=== PATIENT | male | born 1995 | race Asian ===

== ENCOUNTER → 2019-10-19 16:02 | Outpatient (POV) | payer BC, SELFPAY | PROVIDERS: PCP Dermatology; Visit Provider Dermatology | DX: Z00.00 Encounter for general adult medical examination without abnormal findings (principal) ==

== ENCOUNTER 2020-02-02 17:19 | Emergency (ER) | payer BC, SELFPAY ==
[2020-02-02 17:37] VITALS: BP 129/67; PULSE 89; RESP 21; TEMP 38.5; O2SAT 100; BMI 23.0
[2020-02-02 17:42] VITALS: BP 129/67; PULSE 89; RESP 21; TEMP 38.5; O2SAT 100; BMI 23.0
--- NOTE | 2020-02-02 17:56 | HMH.EDUTC ---
[facility] [place] Disposition Clinical Impression: URI (upper respiratory infection) Qualifiers: URI type: unspecified URI Qualified Code(s): J06.9 - Acute upper respiratory infection, unspecified Disposition: Home, Self-Care Condition on Discharge: Good Instructions: Sore Throat, Sinusitis, DI for Sinusitis, DI for Cough -- Adult, Preventing the Spread of Coronavirus Discharge Instructions Additional Instructions: No work until COVID19 test back and negative results *Take medication as prescribed *Monitor Temp, Over the counter Motrin or Tylenol as directed/as needed Tylenol every 4 hours and Motrin every 6 hours (as long as your family doctor has told you that you can take it) for fever or pain. and straight to ER if unable to lower temp less than 101.0 after medication given *Warm salt water gargles may help to soothe the throat *Throat Lozenges *Warm fluids like tea with honey may help to soothe the throat *Sleep elevated *Humidifier/Vaporizer Your throat swab was sent for culture. Those results are typically sent to your primary care. Be sure to follow up in 2-3 days with your family doctor/primary care physician if no improvement so they can review those result and treat if necessary. If you don?t have a primary care doctor, I recommend you get one but in the mean time, you will have to return to a walk in clinic Follow up IMMEDIATELY for new or worsening symptoms or no Noticeable improvement over the next 48-72 hours. 911 for difficulty breathing or swallowing You was given handout with further instructions on how to quarantine at home make sure you read and follow these instructions Call back to the [facility] on Friday to see if your COVID19 test results are back and result of the test Prescriptions: Azithromycin [Z-Isidro 250mg Tab] 250 mg PO DIRECTED #6 tab Prescription Printed Referrals: Provider,Referral, MD [Primary Care Provider] - As needed Forms: Work/School Release Time of Disposition: 18:28 Medical Decision Making - Lamberto Inquiry Pt receiving controlled substance: No Lamberto was queried for this patient: No Vital Signs: 02/02/20 17:37 02/02/20 17:42 02/02/20 18:24 Temperature 101.3 F H 101.3 F H 100.7 F H Temperature Source Oral Oral Oral Pulse Rate [Right] 89 89 Respiratory Rate 21 21 Blood Pressure [Right Arm] 129/67 129/67 Blood Pressure Mean [Right Arm] 87 87 Blood Pressure Source [Right Arm] Automatic Cuff Blood Pressure Position [Right Arm] Sitting 02 Sat by Pulse Oximetry 100 100 Oxygen Delivery Method Room Air - Lab Data Lab results reviewed: Yes: I reviewed the patient's lab results. Lab Results 02/02/20 18:09: Influenza Type A Ag Negative, Influenza Type B Ag Negative 02/02/20 18:09: Strep Scn Rapid Clinic Negative Orders (Tests/Meds): ED MEDICATIONS Discontinued Medications Generic Name Dose Route Start Last Admin Trade Name Sania PRN Reason Stop Dose Admin Acetaminophen 650 mg 02/02/20 17:46 02/02/20 17:50 Acetaminophen 325mg Tab PO 02/02/20 17:47 650 mg ONCE ONE Administration Ibuprofen 400 mg 02/02/20 17:46 02/02/20 17:50 Motrin 400mg Tablet PO 02/02/20 17:47 400 mg ONCE ONE Administration ORDERS Category Date Time Status SARS-CoV-2, ROVERTO Stat Lab 02/02/20 18:00 Received Strep Screen Confirmation Stat Micro 02/02/20 18:09 Received [facility] [place] HPI - General Stated complaint: Joint pain, has been running a fever Time Seen by Provider: 02/02/20 17:56 Mode of Arrival: Ambulatory Source of Information: Patient Limitations: No Limitations Description of Symptoms (Recalled from Triage Doc. by RN): C/O sore throat, body aches, fever, and cough since yesterday. HEENT Symptoms (Recalled from RN notes): Yes Resp Symptoms (Recalled from RN notes): Yes Skin Symptoms (Recalled from RN notes): No MS Symptoms (Recalled from RN notes): Yes Functional Status (Recalled from RN notes): WNL - History of Present Illness Provider Complaint: Pat
[2020-02-02 18:10] LABS: UTC Influenza A Antigen Negative (Negative); UTC Strep Screen (Rapid) Negative (Negative)
[2020-02-02 18:11] LABS: UTC Influenza B Antigen Negative (Negative)
[2020-02-02 18:24] VITALS: TEMP 38.2
[2020-02-02 18:36] VITALS: BP 129/67; PULSE 89; RESP 21; TEMP 38.2; O2SAT 100
[2020-02-04 21:31] LABS: Covid-19 Nasal PCR Sendout Lex NOT DETECTED
== END 2020-02-02 18:38 | disposition home or self-care (01) ==
PROVIDERS: Emergency Provider Nurse Practitioner
DX: J06.9 Acute upper respiratory infection, unspecified (principal); F17.210 Nicotine dependence, cigarettes, uncomplicated; Z88.2 Allergy status to sulfonamides
CPT/HCPCS: 87804; 87880; 99202; U0004

== ENCOUNTER 2020-09-06 17:05 | Emergency (ER) | payer BC, SELFPAY ==
[2020-09-06 17:31] VITALS: BP 134/96; PULSE 87; RESP 18; TEMP 36.9; O2SAT 96; BMI 23.0
[2020-09-06 17:37] VITALS: BP 131/98; PULSE 88; RESP 19; TEMP 36.9
--- NOTE | 2020-09-06 17:42 | HMH.EDUTC ---
[facility] [place] Disposition Clinical Impression: Exposure to COVID-19 virus Disposition: Home, Self-Care Condition on Discharge: Good Instructions: Preventing the Spread of Coronavirus Discharge Instructions Additional Instructions: Drink plenty of fluids. Take tylenol for pain or fever. Return if you begin to have difficulty breathing. Follow up with your regular doctor. GO TO THE ER FOR ANY WORSENING SYMPTOMS Referrals: PCP,No [Primary Care Provider] - Forms: Work/School Release Time of Disposition: 17:46 Medical Decision Making - Medical Records Medical records reviewed: No: I reviewed the patient's medical records. - Lamberto Inquiry Pt receiving controlled substance: No Vital Signs: 09/06/20 17:31 09/06/20 17:37 Temperature 98.5 F 98.5 F Temperature Source Oral Oral Pulse Rate 88 Pulse Rate [Right] 87 Respiratory Rate 18 19 Blood Pressure 131/98 H Blood Pressure [Right Arm] 134/96 H Blood Pressure Mean [Right Arm] 108 Blood Pressure Source Automatic Cuff Blood Pressure Source [Right Arm] Automatic Cuff Blood Pressure Position Sitting Blood Pressure Position [Right Arm] Sitting 02 Sat by Pulse Oximetry 96 Oxygen Delivery Method Room Air Room Air [facility] [place] HPI - General Stated complaint: covid test Time Seen by Provider: 09/06/20 17:42 Mode of Arrival: Ambulatory Source of Information: Patient Limitations: No Limitations Description of Symptoms (Recalled from Triage Doc. by RN): pts brother is covid positive and they live in the same household. afebrile and asymptomatic. HEENT Symptoms (Recalled from RN notes): No Resp Symptoms (Recalled from RN notes): No Skin Symptoms (Recalled from RN notes): No MS Symptoms (Recalled from RN notes): No Functional Status (Recalled from RN notes): na - History of Present Illness Provider Complaint: He has been exposed to covid-19 in his house. He denies any symptoms so far. - Related Data Previous Rx's Medication Instructions Recorded atomoxetine 40 mg capsule 40 mg PO DAILY #30 cap 05/31/19 Azithromycin [Z-Isidro 250mg Tab] 250 mg PO DIRECTED #6 tab 02/02/20 Allergies Allergy/AdvReac Type Severity Reaction Status Date / Time Sulfa (Sulfonamide Allergy Intermediate I-RASH Verified 05/31/19 13:29 Antibiotics) [SULFA (SULFONAMIDE ANTIBIOTICS)] - Worker's Comp Is this a Worker's Comp case?: No [facility] History - Hepatitis A Screen Drug use history?: No High risk sexual behaviors?: No History of sexually transmitted infection?: No Currently employed?: No Childcare worker?: No Do you have indoor plumbing?: Yes Do you have electricity?: Yes Attestation statement:: This patient has been screened for Hepatitis A risk factors. I have reviewed the patient's past medical history: Yes Medical History: Denies:: Cancer, Diabetes Mellitus Type 1, Diabetes Mellitus Type 2, MRSA Amputation: No Fractures: No Comment: [place] Teeth - Social History Smoking Status: Current every day smoker Tobacco Type: e-cigarettes # Packs/Day (cigarettes): 1 Alcohol Intake: current Alcohol Intake Frequency:: 3 or more drinks per day Substance Use Type: denies use Occupational Status: employed Family Hx:: Cancer ROS Obtained: Yes All systems reviewed & no additional complaints - Constitutional Constitutional: Reports system reviewed and no additional complaints, except as docu - Eyes Eyes: Reports system reviewed and no additional complaints, except as docu - ENT Ears, Nose, Mouth, and Throat: Reports system reviewed and no additional complaints, except as docu - Cardiovascular Cardiovascular: Reports system reviewed and no additional complaints, except as docu - Respiratory Respiratory: Reports system reviewed and no additional complaints, except as docu - Gastrointestinal Gastrointestingal: Reports: system reviewed and no additional complaints, except as docu Physical Exam - General General appearance: alert,
== END 2020-09-06 17:47 | disposition home or self-care (01) ==
PROVIDERS: Emergency Provider Nurse Practitioner Family
DX: Z20.822 Contact with and (suspected) exposure to COVID-19 (principal); Z88.2 Allergy status to sulfonamides; Z72.0 Tobacco use
CPT/HCPCS: 99202; G0463; U0003

== ENCOUNTER 2022-07-03 16:56 | Emergency (ER) | payer BC, SELFPAY ==
[2022-07-03 18:30] VITALS: BP 119/72; PULSE 74; RESP 20; TEMP 36.9; O2SAT 97; BMI 23.0
--- NOTE | 2022-07-03 18:41 | EXP.UTC ---
Discharge Plan Disposition Patient Disposition: Home, Self-Care Condition: Good Prescriptions Prescriptions: New pseudoephedrine HCl [Sudafed 12 Hour] 120 mg tablet extended release 120 mg PO Q12H PRN (Reason: nasal congestion) Qty: 10 0RF guaifenesin [Mucinex] 600 mg tablet extended release 12hr 600 mg PO BID PRN (Reason: cough) Qty: 20 0RF No Action atomoxetine [Strattera] 40 mg capsule 40 mg PO DAILY Qty: 30 2RF oseltamivir [Tamiflu] 75 mg capsule 75 mg PO DAILY Qty: 10 0RF azithromycin 250 MG tablet 250 mg PO DIRECTED Qty: 6 0RF Rx Instructions: Take two (2) tablets on day #1, then one (1) tablet day #2 thru #5 Referrals Follow up/Referrals: Provider,Referral, MD [Primary Care Provider] - See instructions Activity Restrictions/Add. Instructions Additional Instructions/Restrictions: *Monitor Temp, Over the counter Motrin or Tylenol as directed/as needed Tylenol every 4 hours and Motrin every 6 hours (as long as your family doctor has told you that you can take it) for fever or pain. and straight to ER if unable to lower temp less than 101.0 after medication given *Warm salt water gargles may help to soothe the throat *Throat Lozenges? *Warm fluids like tea with honey may help to soothe the throat? *Sleep elevated *Humidifier/Vaporizer Take sudafed as prescribed for nasal congestion Follow up IMMEDIATELY for new or worsening symptoms or no Noticeable improvement over the next 48-72 hours. 911 for difficulty breathing or swallowing Clinical Impressions Clinical Impression: Viral upper respiratory tract infection with cough Stand Alone Forms Stand Alone Forms: Work/School Release Instructions Patient Instructions: Cough, DI for Viral Upper Respiratory Infection -- Adult Discharge ED Provider: Opal Araujo [facility] [place] HPI General Stated complaint: Cough,Congestion,fever Time Seen by Provider: 07/03/22 18:41 History of Present Illness Provider Complaint: Patient states that he has been having nasal congestion, cough, fever, chills and body aches since Friday State that today he was still not feeling well so he came in to get checked for the flu Related Data Previous Rx's Medication Instructions Recorded atomoxetine 40 mg capsule 40 mg PO DAILY #30 caps 05/31/19 (Strattera) azithromycin 250 mg tablet 250 mg PO DIRECTED #6 tabs 02/02/20 oseltamivir 75 mg capsule (Tamiflu) 75 mg PO DAILY #10 caps 11/16/21 guaifenesin 600 mg tablet, 600 mg PO BID PRN cough #20 tabs 07/03/22 extended release 12 hr (Mucinex) pseudoephedrine HCl 120 mg 120 mg PO Q12H PRN nasal 07/03/22 tablet,extended release (Sudafed congestion #10 tabs 12 Hour) Allergies Allergy/AdvReac Type Severity Reaction Status Date / Time Sulfa (Sulfonamide Allergy Intermediate I-RASH Verified 05/31/19 13:29 Antibiotics) [SULFA (SULFONAMIDE ANTIBIOTICS)] [facility] Disclaimer: The information contained in this section may have been updated after the patient was seen, as this information can be updated by other users. Medical History (Updated 07/03/22 @ 18:59 by Opal Araujo APRN) No significant past medical history Social History (Updated 07/03/22 @ 18:49 by Molly Tang RN) Smoking Status: Current every day smoker tobacco type: e-cigarettes alcohol intake: current substance use type: denies use current occupational status: employed Travel in the last 8 weeks: None ROS Obtained: Yes All systems reviewed & no additional complaints except as documented and Yes Systems reviewed as appropriate & no additional complaints except as documented Constitutional Constitutional: Reports system reviewed and no additional complaints, except as documented, Reports as per HPI, Reports body ache, Reports chills and Reports fever(s) ENT Ears, Nose, Mouth, and Throat: Reports system reviewed and no additional complaints, except as documented, Report
[2022-07-03 18:45] LABS: UTC Influenza A Antigen Negative (Negative); UTC Influenza B Antigen Negative (Negative)
[2022-07-03 19:02] VITALS: BP 119/72; PULSE 74; RESP 20; TEMP 36.9; O2SAT 97
== END 2022-07-03 19:06 | disposition home or self-care (01) ==
PROVIDERS: Emergency Provider Nurse Practitioner
DX: J06.9 Acute upper respiratory infection, unspecified (principal)
CPT/HCPCS: 87804; 99212; G0463

== ENCOUNTER 2022-11-28 10:43 | Emergency (ER) | payer BC, SELFPAY ==
[2022-11-28 10:43] VITALS: BP 133/74; PULSE 106; RESP 18; TEMP 37.3; O2SAT 98; BMI 23.8
--- NOTE | 2022-11-28 11:10 | EXP.UTC ---
Discharge Plan Disposition Patient Disposition: Home, Self-Care Condition: Good Prescriptions Prescriptions: New kzjafcckhokhfqd-ztbcitznh-JE [Bromfed DM] 2-30-10 mg/5 mL Syrup 5 ml PO Q6H PRN (Reason: Cough) Qty: 240 0RF azithromycin [Zithromax] 250 mg tablet 250 mg PO UD DOSE PK Qty: 6 0RF Rx Instructions: Take two (2) tablets today, then one (1) tablet days #2 thru #5 prednisone 10 mg tablet 10 mg PO BID 3 Days Qty: 6 0RF Referrals Follow up/Referrals: Provider,Referral, MD [Primary Care Provider] - See instructions Activity Restrictions/Add. Instructions Additional Instructions/Restrictions: Drink plenty of fluids. Take tylenol or ibuprofen for pain or fever. Take the medications as directed. Follow up with your regular doctor. GO TO THE ER FOR ANY WORSENING SYMPTOMS Clinical Impressions Clinical Impression: Pharyngitis Stand Alone Forms Stand Alone Forms: Work/School Release Discharge ED Provider: Phani Muñoz [facility] General Stated complaint: Sore throat, bodyaches Mode of Arrival: Ambulatory Source of Information: Patient Limitations: No Limitations Time Seen by Provider: 11/28/22 11:10 Description of Symptoms (Recalled from Triage Doc. by RN): body aches, cough, and sore throat HEENT Symptoms (Recalled from RN notes): Yes Resp Symptoms (Recalled from RN notes): No Skin Symptoms (Recalled from RN notes): No MS Symptoms (Recalled from RN notes): No Functional Status (Recalled from RN notes): n/a History of Present Illness Provider Complaint: He states that for the past 3 days he has had sore throat, sinus congestion and a cough. Related Data Previous Rx's Medication Instructions Recorded azithromycin 250 mg tablet 250 mg PO UD DOSE PK #6 tabs 11/28/22 (Zithromax) nbflurmmcchzzad-vdotwopmardxktz-QY 5 ml PO Q6H PRN Cough #240 mL 11/28/22 2 mg-30 mg-10 mg/5 mL oral syrup (Bromfed DM) prednisone 10 mg tablet 10 mg PO BID 3 days #6 tabs 11/28/22 Allergies Allergy/AdvReac Type Severity Reaction Status Date / Time Sulfa (Sulfonamide Allergy Intermediate I-RASH Verified 11/28/22 11:01 Antibiotics) [SULFA (SULFONAMIDE ANTIBIOTICS)] Worker's Comp Is this a Worker's Comp case?: No [facility] Disclaimer: The information contained in this section may have been updated after the patient was seen, as this information can be updated by other users. Medical History No significant past medical history Social History Smoking Status: Current every day smoker tobacco type: e-cigarettes alcohol intake: current substance use type: denies use current occupational status: employed Travel in the last 8 weeks: None ROS Obtained: Yes All systems reviewed & no additional complaints except as documented Constitutional Constitutional: Denies chills and Denies fever(s) Eyes Eyes: Denies eye discharge ENT Ears, Nose, Mouth, and Throat: Denies dizziness, Denies otalgia and Reports sore throat Cardiovascular Cardiovascular: Denies chest pain Respiratory Respiratory: Denies shortness of breath, Denies chest congestion, Denies cough, Denies stridor and Denies wheezing Gastrointestinal Gastrointestingal: Denies nausea or vomiting Musculoskeletal Musculoskeletal: Reports system reviewed and no additional complaints, except as documented and Denies arthralgias Integumentary/Breasts Skin/Breast: Denies rash Neurologic Neurologic: Denies dizziness and Denies paresthesias Allergic/Immunologic Allergic/Immunologic: Denies wheezing Physical Exam General General appearance: alert and in no apparent distress Head Head exam: atraumatic, normocephalic and normal inspection Eye Eye exam: Present normal appearance, PERRL and EOMI ENT ENT exam: Present mucous membranes moist and normal external ear exam Expanded ENT Exam TM/Canal exam: Bilatera
[2022-11-28 11:13] LABS: UTC Strep Screen (Rapid) Negative (Negative)
[2022-11-28 11:14] LABS: UTC Influenza A Antigen Negative (Negative); UTC Influenza B Antigen Negative (Negative)
[2022-11-28 12:14] VITALS: BP 133/74; PULSE 106; RESP 18; TEMP 37.3; O2SAT 98
== END 2022-11-28 12:14 | disposition home or self-care (01) ==
PROVIDERS: Emergency Provider Nurse Practitioner Family
DX: J02.9 Acute pharyngitis, unspecified (principal); M79.18 Myalgia, other site
CPT/HCPCS: 87804; 87880; 99212; 99214; G0463

== ENCOUNTER 2024-02-17 12:33 | Emergency (ER) | payer BC, SELFPAY ==
[2024-02-17 12:45] VITALS: BP 127/74; PULSE 91; RESP 20; TEMP 37.4; O2SAT 99; BMI 23.8
--- NOTE | 2024-02-17 12:58 | EXP.UTC ---
Discharge Plan Disposition Patient Disposition: Home, Self-Care Condition: Good Prescriptions Prescriptions: New vbxfdcysyvxrpjx-kvllajmws-JZ [Bromfed DM] 2-30-10 mg/5 mL syrup 10 ml PO Q6H PRN (Reason: cold symptoms) Qty: 200 0RF Referrals Follow up/Referrals: Provider,Referral, [Primary Care Provider] - See instructions Activity Restrictions/Add. Instructions Additional Instructions/Restrictions: *Monitor Temp, Over the counter Motrin or Tylenol as directed/as needed Tylenol every 4 hours and Motrin every 6 hours (as long as your family doctor has told you that you can take it) for fever or pain. and straight to ER if unable to lower temp less than 101.0 after medication given *Warm salt water gargles may help to soothe the throat *Throat Lozenges? *Warm fluids like tea with honey may help to soothe the throat? *Sleep elevated *Humidifier/Vaporizer *Your throat swab was sent for culture. Those results are typically sent to your primary care. Be sure to follow up in 2-3 days with your family doctor/primary care physician if no improvement so they can review those result and treat if necessary. If you don?t have a primary care doctor, I recommend you get one but in the mean time, you will have to return to a walk in clinic Follow up IMMEDIATELY for new or worsening symptoms or no Noticeable improvement over the next 48-72 hours. 911 for difficulty breathing or swallowing Clinical Impressions Clinical Impression: Viral upper respiratory tract infection with cough Stand Alone Forms Stand Alone Forms: Work/School Release Instructions Patient Instructions: Cough, Sore Throat Discharge ED Provider: Opal Araujo [facility] [place] HPI General Stated complaint: sore throat, body aches Mode of Arrival: Ambulatory Source of Information: Patient Limitations: No Limitations Time Seen by Provider: 02/17/24 12:58 Description of Symptoms (Recalled from Triage Doc. by RN): PATIENT C/O SORE THROAT, BODY ACHES AND COUGH THAT STARTED TODAY HEENT Symptoms (Recalled from RN notes): Yes Resp Symptoms (Recalled from RN notes): Yes Skin Symptoms (Recalled from RN notes): No MS Symptoms (Recalled from RN notes): No Functional Status (Recalled from RN notes): WNL History of Present Illness Provider Complaint: Patient states that yesterday he started with sore scratchy throat and that has continued to get worse, States today he has been having body aches, chills, sore throat cough and fever so he was worried he may have strep throat or something Related Data Previous Rx's Medication Instructions Recorded tlwdnshipfovdar-zzfjpnlxplnckor-ZB 10 ml PO Q6H PRN cold symptoms 02/17/24 2 mg-30 mg-10 mg/5 mL oral syrup #200 mL (Bromfed DM) Allergies Allergy/AdvReac Type Severity Reaction Status Date / Time Sulfa (Sulfonamide Allergy Intermediate I-RASH Verified 11/28/22 11:01 Antibiotics) [SULFA (SULFONAMIDE ANTIBIOTICS)] Worker's Comp Is this a Worker's Comp case?: No [facility] Disclaimer: The information contained in this section may have been updated after the patient was seen, as this information can be updated by other users. Medical History No significant past medical history Social History Smoking Status: Current every day smoker tobacco type: e-cigarettes alcohol intake: current alcohol intake frequency: 3 or more drinks per day substance use type: denies use current occupational status: employed Travel in the last 8 weeks: None ROS Obtained: Yes All systems reviewed & no additional complaints except as documented and Yes Systems reviewed as appropriate & no additional complaints except as documented Constitutional Constitutional: Reports system reviewed and no additional complaints, except as documented, Reports as per HPI, Reports body ache, Reports chills, Reports fever(s) and Reports headache(s) ENT Ears, Nose, Mouth, and Throat: Reports system reviewed and no additional complaints, except as documented, Reports as per HPI, Reports headache(s) and Reports sore throat Cardiovascular Cardiovascular: Reports system reviewed and no additional complaints, except as documented and Reports as per HPI Respiratory Respiratory: Reports system reviewed and no additional complaints, except as documented and Reports as per HPI Gastrointestinal Gastrointestingal: Reports system reviewed and no additional complaints, except as documented and as per HPI Musculoskeletal Musculoskeletal: Reports system reviewed and no additional complaints, except as documented and Reports as per HPI Neurologic Neurologic: Reports headache(s) Physical Exam General General appearance: alert and in no apparent distress ENT ENT exam: Present mucous membranes moist Expanded ENT Exam Throat exam: Present tonsillar erythema Respiratory Respiratory exam: Present normal lung sounds bilaterally; Absent respiratory distress or wheezes Cardiovascular Cardiovascular exam: Present regular rate, normal rhythm and normal heart sounds Neurological Exam Neurological exam: Present alert, oriented X3 and normal gait Medical Decision Making Lamberto Inquiry Pt receiving controlled substance: No Lamberto was queried for this patient: No Vital Signs: 02/17/24 12:45 Temperature 99.4 F Temperature Source Oral Pulse Rate [Left Brachial] 91 H Respiratory Rate 20 Blood Pressure [Left Arm] 127/74 Blood Pressure Mean [Left Arm] 91 Blood Pressure Source [Left Arm] Automatic Cuff Blood Pressure Position [Left Arm] Sitting 02 Sat by Pulse Oximetry 99 Oxygen Delivery Method Room Air Lab Data Lab results reviewed: Yes I reviewed the patient's lab results.
[2024-02-17 13:08] LABS: UTC Influenza A Antigen Negative (Negative); UTC Strep Screen (Rapid) Negative (Negative)
[2024-02-17 13:09] LABS: UTC Influenza B Antigen Negative (Negative)
[2024-02-17 13:18] VITALS: BP 127/74; PULSE 91; RESP 20; TEMP 37.4; O2SAT 99
== END 2024-02-17 13:21 | disposition home or self-care (01) ==
PROVIDERS: Emergency Provider Nurse Practitioner
DX: U07.1 COVID-19 (principal); R07.0 Pain in throat; R05.9 Cough, unspecified; R50.9 Fever, unspecified
CPT/HCPCS: 87635; 87804; 87880; 99212; 99214; G0463